=== PATIENT | female | born 1950 | race Caucasian/White ===

== ENCOUNTER 2019-12-31 23:46 | Inpatient (IN) | payer MEDICARE, OTHER ==
[~2019-12-31] VITALS: Ht 170.2 cm; Wt 59.0 kg
--- NOTE | 2019-12-31 22:00 | NUR ---
received report from Casey Adair RN
--- NOTE | 2020-01-01 05:52 | NUR ---
Paged Hospitalist to inform her that patient has arrived from [facility] and will need to be seen and orders are needed.
[2020-01-01 06:09] VITALS: BP 140/80
--- NOTE | 2020-01-01 06:12 | NUR ---
keke Sarmiento RN report
--- NOTE | 2020-01-01 06:21 | NUR ---
gave report to ROSALIA Del Rosario
--- NOTE | 2020-01-01 06:39 | NUR ---
Patient in room ORTHO 4006. I have received report from Silvia LINDSEY and had the opportunity to ask questions and assume patient care.
[2020-01-01] MEDS ORDERED: potassium CL 10mEq/100ml bag 100 ML IV PRN ×2 (06:45)
[2020-01-01] MEDS ORDERED: ondansetron/PF 4mg/2ml inj IV PRN (06:45)
[2020-01-01] MEDS ORDERED: HYDROcodone/acetaminophen 10/325mg tab PO PRN (06:45)
[2020-01-01] MEDS ORDERED: morphine 2 MG/ML inj. syringe IV PRN ×2 (06:45)
[2020-01-01] MEDS ORDERED: acetaminophen 325mg tablet PO PRN (06:45)
[2020-01-01] MEDS ORDERED: magnesium 2GM in 50ml NS 50 ML IV PRN (06:45)
[2020-01-01] MEDS ORDERED: potassium Cl 20 mEq SR tablet PO PRN (06:45)
[2020-01-01] MEDS ORDERED: magnesium Cl slow-release 64mg tablet PO PRN (06:45)
[2020-01-01] MEDS ORDERED: HYDROcodone/acetaminophen 5mg/325mg tablet PO PRN (06:45)
[2020-01-01] MEDS ORDERED: magnesium 4gm in 100ml NS 100 ML IV PRN (06:45)
--- NOTE | 2020-01-01 07:45 | NUR ---
Patients daughter, Danielle Toth, called and was updated on the patients plan of care. Will continue to closely monitor.
[2020-01-01] MEDS: K and/or MAG REPLACEMENT MC SCH ×2 (08:00→19:48)
[2020-01-01] MEDS ORDERED: guaiFENesin/DM/phenylephrine syrup 120ml bottle PO SCH (08:00)
[2020-01-01] MEDS: heparin, porcine 5000 units/ml vial SQ SCH ×2 (08:08→19:54)
[2020-01-01] MEDS: CefTRIAXone 2gm/D5W 50ml 50 ML IV SCH (08:09)
[2020-01-01] MEDS: docusate sod 100mg capsule PO SCH ×2 (08:09→19:54)
[2020-01-01] MEDS: normal saline 1000ml 1,000 ML IV SCH ×2 (08:09→23:38)
[2020-01-01] MEDS ORDERED: LOSA25TA96 PO (08:23)
[2020-01-01] MEDS ORDERED: SYN0.088T PO (08:23)
[2020-01-01] MEDS: azithromycin/NS 500mg/250ml 250 ML IV SCH (08:41)
[2020-01-01] MEDS ORDERED: pneumococcal 23-VAL P-sac vacc 25 mcg/0.5ml vial IMVAC ONE (09:15)
[2020-01-01] MEDS ORDERED: FLU VACC QS2019-20 36MOS UP/PF 60 MCG/0.5 ML SYRINGE IMVAC ONE (09:20)
[2020-01-01] MEDS: guaiFENesin/DM 10ml UD oral syrup PO SCH ×3 (10:09→19:54)
[2020-01-01 10:15] VITALS: BP 145/78
[2020-01-01 10:16] LABS: BASOPHILS % (AUTO) 0.2 % (0-1); EOSINOPHILS # (AUTO) 0.1 X10'3 (0-0.9); EOSINOPHILS % (AUTO) 0.5 % (0-6); HEMATOCRIT 33.9 % (35.0-45.0); LYMPHOCYTES # (AUTO) 1.3 X10'3 (1.1-4.8); LYMPHOCYTES % (AUTO) 8.8 % (21-51); MEAN CORPUSCULAR HEMOGLOBIN 29.2 PG (27.0-31.0); MEAN CORPUSCULAR HGB CONC 32.3 g/dL (33.0-36.5); MEAN CORPUSCULAR VOLUME 90.3 FL (78-98); MEAN PLATELET VOLUME 7.8 FL (7.4-10.4); MONOCYTES # (AUTO) 0.2 X10'3 (0-0.9); MONOCYTES % (AUTO) 1.3 % (2-12); NEUTROPHILS # (AUTO) 12.8 X10'3 (1.8-7.7); NEUTROPHILS % (AUTO) 89.2 % (42-75); PLATELET COUNT 219 X10'3 (140-440); RED BLOOD COUNT 3.76 X10'6 (4.20-5.60); RED CELL DISTRIBUTION WIDTH 14.1 % (11.5-14.5); WHITE BLOOD COUNT 14.3 X10'3 (4.5-11.0)
[2020-01-01 10:20] LABS: ALANINE AMINOTRANSFERASE 14 U/L (12-78); ALBUMIN 2.3 G/DL (3.4-5.0); ALBUMIN/GLOBULIN RATIO 0.5 (1.1-1.5); ALKALINE PHOSPHATASE 72 IU/L (46-116); ANION GAP 10 (8-16); ASPARTATE AMINO TRANSFERASE 18 U/L (10-37); BILIRUBIN,TOTAL 0.4 MG/DL (0.1-1.0); BLOOD UREA NITROGEN 31 MG/DL (7-18); CALCIUM 8.7 MG/DL (8.5-10.1); CHLORIDE 104 MMOL/L (99-107); CREATININE 1.29 MG/DL (0.40-0.90); GLUCOSE 81 MG/DL (70-104); POTASSIUM 3.9 MMOL/L (3.5-5.1); SODIUM 136 MMOL/L (135-145); TOTAL CARBON DIOXIDE 22.5 MMOL/L (24-32); TOTAL PROTEIN 6.7 G/DL (6.4-8.2); eGFR 41 ML/MIN
[2020-01-01 10:42] LABS: TOTAL CELLS COUNTED 100
[2020-01-01 10:45] LABS: PLATELET ESTIMATE NORMAL; TOXIC GRANULATION 2+; TOXIC VACUOLATION 1+
--- NOTE | 2020-01-01 12:09 | NUR ---
Malnutrition consult: Pt admit w/ sepsis, hypoxia, RUL PNA, CHRISTIANO, HTN, hypothyroidism, and SOB pending final COVID-19 results per MD. Pt has normal strength, no edema/wounds, current 58.9kg pt stated wt w/ no prior wt hx, and PO 50% avg first meal this admit. Further PO hx pending this admit. At this time pt does not meet minimum malnutrition criteria. Will monitor for additional protein needs pending further PO documentation given hx. Rec: 1. continue heart healthy diet 2. monitor for additional protein needs 3. bowel care as needed 4. wt per rx Addendum: 01/01/20 at [address] Amended: Links added.
[2020-01-01] MEDS: acetaminophen 325mg tablet PO PRN (12:39)
[2020-01-01] MEDS ORDERED: LEVO125T PO (14:14)
--- NOTE | 2020-01-01 16:16 | NUR ---
Paged Dr Alexander re coronavirus test results PAGER ID: [phone] MESSAGE: Nadiya LINDSEY [phone] D Yuan, test came back negative for coronavirus, thanks!
[2020-01-01 18:00] VITALS: BP 162/87
--- NOTE | 2020-01-01 18:14 | NUR ---
Problems reprioritized. Patient report given, questions answered & plan of care reviewed with Kyung LINDSEY.
--- NOTE | 2020-01-01 18:40 | NUR ---
Patient in room ORTHO 4021. I have received report from alina Hearn and had the opportunity to ask questions and assume patient care.
[2020-01-01] MEDS: lactobacillus rhamnosus 10,000 MMU CELLS/CAPSULE PO SCH (19:54)
[2020-01-01 22:00] VITALS: BP 163/90
[2020-01-01] MEDS ORDERED: codeine/proMETHazine 5ml UD syrup PO ONE (23:25)
[2020-01-01] MEDS: benzonatate 100mg capsule PO PRN (23:35)
--- NOTE | 2020-01-01 23:54 | NUR ---
CODEINE/PROMETHZINE SYROP IS NOT AVAILABLE PER PHARMACY. WILL GIVE TESSLN PEARLS FOR COUGH.
[2020-01-02] MEDS: guaiFENesin/DM 10ml UD oral syrup PO SCH ×4 (01:26→19:44)
[2020-01-02 05:56] LABS: BASOPHILS % (AUTO) 0 % (0-1); EOSINOPHILS % (AUTO) 0.2 % (0-6); HEMATOCRIT 29.8 % (35.0-45.0); LYMPHOCYTES # (AUTO) 1.3 X10'3 (1.1-4.8); LYMPHOCYTES % (AUTO) 12.1 % (21-51); MEAN CORPUSCULAR HGB CONC 33.5 g/dL (33.0-36.5); MEAN CORPUSCULAR VOLUME 89.7 FL (78-98); MEAN PLATELET VOLUME 7.5 FL (7.4-10.4); MONOCYTES # (AUTO) 0.5 X10'3 (0-0.9); MONOCYTES % (AUTO) 4.5 % (2-12); NEUTROPHILS # (AUTO) 8.6 X10'3 (1.8-7.7); NEUTROPHILS % (AUTO) 83.2 % (42-75); PLATELET COUNT 170 X10'3 (140-440); RED BLOOD COUNT 3.32 X10'6 (4.20-5.60); RED CELL DISTRIBUTION WIDTH 14.3 % (11.5-14.5); WHITE BLOOD COUNT 10.4 X10'3 (4.5-11.0)
[2020-01-02 06:18] LABS: ALBUMIN 1.7 G/DL (3.4-5.0); ANION GAP 8 (8-16); BLOOD UREA NITROGEN 16 MG/DL (7-18); BUN/CREATININE RATIO 15.4 (6.6-38.0); CALCIUM 8.5 MG/DL (8.5-10.1); CHLORIDE 108 MMOL/L (99-107); CREATININE 1.04 MG/DL (0.40-0.90); GLUCOSE 86 MG/DL (70-104); POTASSIUM 3.4 MMOL/L (3.5-5.1); SODIUM 140 MMOL/L (135-145); TOTAL CARBON DIOXIDE 24.1 MMOL/L (24-32); eGFR 53 ML/MIN
--- NOTE | 2020-01-02 06:34 | NUR ---
Problems reprioritized. Patient report given, questions answered & plan of care reviewed with ROSALIA MOURA AND ROSALIA TINSLEY.
--- NOTE | 2020-01-02 06:45 | NUR ---
Patient in room ORTHO 4021. I have received report from Rebecca LINDSEY and had the opportunity to ask questions and assume patient care.
[2020-01-02 07:00] VITALS: BP 120/62
[2020-01-02] MEDS: K and/or MAG REPLACEMENT MC SCH ×2 (08:00→20:00)
[2020-01-02] MEDS: docusate sod 100mg capsule PO SCH ×2 (08:00→19:51)
[2020-01-02] MEDS: lactobacillus rhamnosus 10,000 MMU CELLS/CAPSULE PO SCH ×2 (08:03→19:44)
[2020-01-02] MEDS: heparin, porcine 5000 units/ml vial SQ SCH ×2 (08:06→19:44)
[2020-01-02] MEDS: azithromycin/NS 500mg/250ml 250 ML IV SCH (08:07)
[2020-01-02] MEDS: CefTRIAXone 2gm/D5W 50ml 50 ML IV SCH (08:08)
[2020-01-02] MEDS: metoprolol succinate 25mg (24-HOUR) SR. Tablet PO SCH ×2 (09:25→12:33)
[2020-01-02] MEDS ORDERED: cloNIDine 0.1 mg tablet PO PRN (09:25)
[2020-01-02 10:00] VITALS: BP 162/63
[2020-01-02] MEDS: potassium Cl 20 mEq SR tablet PO PRN ×2 (10:20→19:45)
[2020-01-02] MEDS: levoTHYROXINE 125mcg tablet PO SCH (10:20)
[2020-01-02] MEDS: losartan 50mg tablet PO SCH (10:21)
--- NOTE | 2020-01-02 10:27 | NUR ---
Patient refused Toprol states this is not a normal home med & has not "been told by a doctor" she needs to take it.
[2020-01-02] MEDS: benzonatate 100mg capsule PO PRN ×2 (12:32→19:58)
[2020-01-02] MEDS ORDERED: guaiFENesin/DM 10ml UD oral syrup PO PRN (13:30)
[2020-01-02] MEDS ORDERED: benzonatate 100mg capsule PO PRN (13:30)
[2020-01-02] MEDS: normal saline 1000ml 1,000 ML IV SCH (14:23)
--- NOTE | 2020-01-02 15:36 | NUR ---
Schuyler Sánchez in career services officer she will meet with pt tomorrow ( Addendum: 01/02/20 at 1541 by Mariya Paredes RN on January 02
--- NOTE | 2020-01-02 15:42 | NUR ---
Patient wants granddaughter Danielle Toth to be named on advanced directive
--- NOTE | 2020-01-02 17:44 | NUR ---
Received a message from Luis Alberto @ [facility] ([phone]) that patient Yvette Pinon (in room 4021) cultures drawn on 12/30 show "budding yeast in the blood culture" Also temp going up. temp just taken= 99.9 Briseida LINDSEY [id number]
--- NOTE | 2020-01-02 17:45 | NUR ---
Received faxed blood culture results from [facility], filed in chart
[2020-01-02 18:00] VITALS: BP 137/55
--- NOTE | 2020-01-02 18:12 | NUR ---
Problems reprioritized. Patient report given, questions answered & plan of care reviewed with
--- NOTE | 2020-01-02 18:37 | NUR ---
Problems reprioritized. Patient report given, questions answered & plan of care reviewed with Rebecca LINDSEY.
[2020-01-02] MEDS: fluconazole-Diflucan 200mg/NS 100 ML IV SCH (19:43)
[2020-01-02 22:00] VITALS: BP 155/77
[2020-01-03] MEDS: guaiFENesin/DM 10ml UD oral syrup PO SCH ×4 (01:28→19:14)
[2020-01-03] MEDS: potassium Cl 20 mEq SR tablet PO PRN (01:28)
[2020-01-03] MEDS: normal saline 1000ml 1,000 ML IV SCH ×3 (01:35→23:04)
[2020-01-03] MEDS: benzonatate 100mg capsule PO PRN ×3 (03:25→23:32)
[2020-01-03 06:00] VITALS: BP 135/61
[2020-01-03 06:14] LABS: BASOPHILS % (AUTO) 0.1 % (0-1); EOSINOPHILS % (AUTO) 0.2 % (0-6); HEMATOCRIT 29.2 % (35.0-45.0); HEMOGLOBIN 9.6 g/dl (12.0-16.0); LYMPHOCYTES # (AUTO) 1.3 X10'3 (1.1-4.8); MEAN CORPUSCULAR HEMOGLOBIN 29.6 PG (27.0-31.0); MEAN CORPUSCULAR HGB CONC 33.1 g/dL (33.0-36.5); MEAN CORPUSCULAR VOLUME 89.6 FL (78-98); MEAN PLATELET VOLUME 7.5 FL (7.4-10.4); MONOCYTES # (AUTO) 0.8 X10'3 (0-0.9); NEUTROPHILS # (AUTO) 7.2 X10'3 (1.8-7.7); NEUTROPHILS % (AUTO) 76.7 % (42-75); PLATELET COUNT 195 X10'3 (140-440); RED BLOOD COUNT 3.26 X10'6 (4.20-5.60); RED CELL DISTRIBUTION WIDTH 14.4 % (11.5-14.5); WHITE BLOOD COUNT 9.4 X10'3 (4.5-11.0)
--- NOTE | 2020-01-03 06:39 | NUR ---
Problems reprioritized. Patient report given, questions answered & plan of care reviewed with ROSALIA CHILDS.
[2020-01-03 06:42] LABS: ALBUMIN 1.7 G/DL (3.4-5.0); ANION GAP 6 (8-16); BLOOD UREA NITROGEN 10 MG/DL (7-18); BUN/CREATININE RATIO 10.5 (6.6-38.0); CALCIUM 8.4 MG/DL (8.5-10.1); CHLORIDE 107 MMOL/L (99-107); CREATININE 0.95 MG/DL (0.40-0.90); FERRITIN 318 NG/ML (8-252); GLUCOSE 84 MG/DL (70-104); MAGNESIUM 1.7 MG/DL (1.5-2.4); POTASSIUM 3.6 MMOL/L (3.5-5.1); SODIUM 139 MMOL/L (135-145); TOTAL CARBON DIOXIDE 26.4 MMOL/L (24-32); eGFR 58 ML/MIN
[2020-01-03 07:03] LABS: % IRON SATURATION 10 % (11-46); IRON 14 UG/DL (49-151); TOTAL IRON BINDING CAPACITY 144 UG/DL (259-388)
[2020-01-03] MEDS: K and/or MAG REPLACEMENT MC SCH ×2 (08:00→20:00)
[2020-01-03] MEDS: docusate sod 100mg capsule PO SCH ×2 (08:28→19:22)
[2020-01-03] MEDS: CefTRIAXone 2gm/D5W 50ml 50 ML IV SCH (08:28)
[2020-01-03] MEDS: losartan 50mg tablet PO SCH (08:29)
[2020-01-03] MEDS: lactobacillus rhamnosus 10,000 MMU CELLS/CAPSULE PO SCH ×2 (08:29→19:14)
[2020-01-03] MEDS: metoprolol succinate 25mg (24-HOUR) SR. Tablet PO SCH ×2 (08:30→08:34)
[2020-01-03] MEDS: levoTHYROXINE 125mcg tablet PO SCH (08:30)
[2020-01-03] MEDS: azithromycin 250mg tablet PO SCH (08:31)
[2020-01-03] MEDS: heparin, porcine 5000 units/ml vial SQ SCH ×2 (08:31→19:14)
[2020-01-03] MEDS: fluconazole-Diflucan 200mg/NS 100 ML IV SCH (09:31)
[2020-01-03 10:00] VITALS: BP 134/76
[2020-01-03 13:04] LABS: OCCULT BLOOD STOOL NEGATIVE (Neg)
[2020-01-03 18:00] VITALS: BP 152/101
[2020-01-03 22:00] VITALS: BP 167/99
[2020-01-04] MEDS: guaiFENesin/DM 10ml UD oral syrup PO SCH ×4 (01:16→19:41)
--- NOTE | 2020-01-04 04:58 | NUR ---
Problems reprioritized. Patient report given, questions answered & plan of care reviewed with ROSALIA CHILDS.
[2020-01-04 06:00] VITALS: BP 133/67
--- NOTE | 2020-01-04 06:20 | NUR ---
Patient in room ORTHO 4021. I have received report from Vita and had the opportunity to ask questions and assume patient care.
--- NOTE | 2020-01-04 06:21 | NUR ---
Patient report given, questions answered and plan of care reviewed with ROSALIA Avelar.
[2020-01-04 06:42] LABS: BASOPHILS % (AUTO) 0.2 % (0-1); EOSINOPHILS % (AUTO) 0.5 % (0-6); HEMATOCRIT 30.1 % (35.0-45.0); LYMPHOCYTES # (AUTO) 1.3 X10'3 (1.1-4.8); LYMPHOCYTES % (AUTO) 16.3 % (21-51); MEAN CORPUSCULAR HEMOGLOBIN 29.9 PG (27.0-31.0); MEAN CORPUSCULAR HGB CONC 33.1 g/dL (33.0-36.5); MEAN CORPUSCULAR VOLUME 90.3 FL (78-98); MEAN PLATELET VOLUME 7.4 FL (7.4-10.4); MONOCYTES # (AUTO) 0.7 X10'3 (0-0.9); MONOCYTES % (AUTO) 9.2 % (2-12); NEUTROPHILS % (AUTO) 73.8 % (42-75); PLATELET COUNT 253 X10'3 (140-440); RED BLOOD COUNT 3.33 X10'6 (4.20-5.60); RED CELL DISTRIBUTION WIDTH 14.3 % (11.5-14.5); WHITE BLOOD COUNT 8.1 X10'3 (4.5-11.0)
[2020-01-04 06:56] LABS: ALBUMIN 1.6 G/DL (3.4-5.0); ANION GAP 6 (8-16); BLOOD UREA NITROGEN 7 MG/DL (7-18); BUN/CREATININE RATIO 7.9 (6.6-38.0); CALCIUM 8.4 MG/DL (8.5-10.1); CHLORIDE 108 MMOL/L (99-107); CREATININE 0.89 MG/DL (0.40-0.90); GLUCOSE 83 MG/DL (70-104); MAGNESIUM 1.8 MG/DL (1.5-2.4); POTASSIUM 3.8 MMOL/L (3.5-5.1); SODIUM 142 MMOL/L (135-145); TOTAL CARBON DIOXIDE 27.9 MMOL/L (24-32); eGFR 63 ML/MIN
[2020-01-04] MEDS: CefTRIAXone 2gm/D5W 50ml 50 ML IV SCH (07:24)
[2020-01-04] MEDS: K and/or MAG REPLACEMENT MC SCH ×2 (07:28→20:00)
[2020-01-04] MEDS: azithromycin 250mg tablet PO SCH (07:32)
[2020-01-04] MEDS: levoTHYROXINE 125mcg tablet PO SCH (07:32)
[2020-01-04] MEDS: docusate sod 100mg capsule PO SCH ×2 (07:32→20:00)
[2020-01-04] MEDS: lactobacillus rhamnosus 10,000 MMU CELLS/CAPSULE PO SCH ×2 (07:32→19:41)
[2020-01-04] MEDS: losartan 50mg tablet PO SCH (07:33)
[2020-01-04] MEDS: heparin, porcine 5000 units/ml vial SQ SCH ×2 (07:33→19:41)
[2020-01-04] MEDS: acetaminophen 325mg tablet PO PRN (07:44)
[2020-01-04] MEDS: benzonatate 100mg capsule PO PRN (07:45)
[2020-01-04] MEDS: fluconazole-Diflucan 200mg/NS 100 ML IV SCH (08:44)
[2020-01-04] MEDS ORDERED: fluconazole 100mg tablet PO ONE (09:05)
--- NOTE | 2020-01-04 09:45 | NUR ---
Reassessment: Patient admitted with sepsis, fever, right upper lobe pneumonia, hypoxemia, CHRISTIANO, HTN, hypothyroidism, and anemia per MD note. Increased protein needs d/t infection, her appetite appears to be good with average PO intake of 50-75% of heart healthy diet, she is meeting her needs at this time. Will continue to follow. Recommend: 1. continue heart healthy diet 2. monitor for additional protein needs if suboptimal PO intake 3. bowel care as needed 4. wt per rx Addendum: 01/04/20 at [address] Amended: Links added.
[2020-01-04 10:00] VITALS: BP 127/75
[2020-01-04] MEDS ORDERED: pneumococcal 23-VAL P-sac vacc 25 mcg/0.5ml vial IMVAC ONE (10:00)
[2020-01-04] MEDS ORDERED: FLU VACC QS2019-20 36MOS UP/PF 60 MCG/0.5 ML SYRINGE IMVAC ONE (10:00)
[2020-01-04] MEDS ORDERED: diphenhydrAMINE 25mg capsule PO PRN (10:50)
[2020-01-04] MEDS: normal saline 1000ml 1,000 ML IV SCH (14:18)
--- NOTE | 2020-01-04 15:39 | NUR ---
PAGER ID: [phone] MESSAGE: Jimmie, for Ms. Yuan in [id number], Dr Ferro's note indicates pt wishes to be DNR/DNI, just FYI, current code status shows "full" Thank you Rosio [phone]
[2020-01-04 18:00] VITALS: BP 148/90
--- NOTE | 2020-01-04 18:17 | NUR ---
Problems reprioritized. Patient report given, questions answered & plan of care reviewed with Isabella.
--- NOTE | 2020-01-04 19:15 | NUR ---
RECEIVED REPORT FROM LESLY LINDSEY AND ASSUMED PATIENT CARE
--- NOTE | 2020-01-04 22:21 | NUR ---
REPORT GIVEN TO FUNMI LINDSEY
[2020-01-05] MEDS: guaiFENesin/DM 10ml UD oral syrup PO SCH ×3 (01:49→14:10)
[2020-01-05] MEDS: normal saline 1000ml 1,000 ML IV SCH (03:17)
[2020-01-05] MEDS: benzonatate 100mg capsule PO PRN ×2 (05:11→10:55)
--- NOTE | 2020-01-05 05:11 | NUR ---
I have reviewed and agree with all interventions, assessments performed and documented by Isabella LINDSEY.
[2020-01-05] MEDS: acetaminophen 325mg tablet PO PRN (05:12)
[2020-01-05 05:52] LABS: BASOPHILS % (AUTO) 0.4 % (0-1); EOSINOPHILS # (AUTO) 0.1 X10'3 (0-0.9); EOSINOPHILS % (AUTO) 1.2 % (0-6); HEMATOCRIT 27.5 % (35.0-45.0); HEMOGLOBIN 9.2 g/dl (12.0-16.0); LYMPHOCYTES # (AUTO) 1.5 X10'3 (1.1-4.8); LYMPHOCYTES % (AUTO) 17.5 % (21-51); MEAN CORPUSCULAR HEMOGLOBIN 29.8 PG (27.0-31.0); MEAN CORPUSCULAR HGB CONC 33.6 g/dL (33.0-36.5); MEAN CORPUSCULAR VOLUME 88.6 FL (78-98); MEAN PLATELET VOLUME 7.1 FL (7.4-10.4); MONOCYTES # (AUTO) 0.7 X10'3 (0-0.9); NEUTROPHILS # (AUTO) 6.2 X10'3 (1.8-7.7); NEUTROPHILS % (AUTO) 72.9 % (42-75); PLATELET COUNT 338 X10'3 (140-440); RED CELL DISTRIBUTION WIDTH 13.9 % (11.5-14.5); WHITE BLOOD COUNT 8.5 X10'3 (4.5-11.0)
[2020-01-05 05:54] LABS: ALBUMIN 1.6 G/DL (3.4-5.0); ANION GAP 6 (8-16); BLOOD UREA NITROGEN 7 MG/DL (7-18); BUN/CREATININE RATIO 9.2 (6.6-38.0); CALCIUM 8.1 MG/DL (8.5-10.1); CHLORIDE 109 MMOL/L (99-107); CREATININE 0.76 MG/DL (0.40-0.90); GLUCOSE 81 MG/DL (70-104); MAGNESIUM 1.6 MG/DL (1.5-2.4); POTASSIUM 3.3 MMOL/L (3.5-5.1); SODIUM 143 MMOL/L (135-145); TOTAL CARBON DIOXIDE 28.3 MMOL/L (24-32); eGFR 75 ML/MIN
[2020-01-05 06:00] VITALS: BP 148/78
--- NOTE | 2020-01-05 06:39 | NUR ---
Problems reprioritized. Patient report given, questions answered & plan of care reviewed with Humera LINDSEY.
[2020-01-05] MEDS: lactobacillus rhamnosus 10,000 MMU CELLS/CAPSULE PO SCH (07:48)
[2020-01-05] MEDS: losartan 50mg tablet PO SCH (07:49)
[2020-01-05] MEDS: metoprolol succinate 25mg (24-HOUR) SR. Tablet PO SCH (07:49)
[2020-01-05] MEDS: docusate sod 100mg capsule PO SCH (07:49)
[2020-01-05] MEDS: levoTHYROXINE 125mcg tablet PO SCH (07:49)
[2020-01-05] MEDS: heparin, porcine 5000 units/ml vial SQ SCH (07:50)
[2020-01-05] MEDS: K and/or MAG REPLACEMENT MC SCH (08:00)
[2020-01-05] MEDS: CefTRIAXone 2gm/D5W 50ml 50 ML IV SCH (08:00)
[2020-01-05] MEDS ORDERED: fluconazole 100mg tablet PO SCH (08:00)
[2020-01-05 08:17] LABS: PLATELET ESTIMATE NORMAL; TOTAL CELLS COUNTED 100
[2020-01-05 10:00] VITALS: BP 156/73
[2020-01-05] MEDS ORDERED: FLU VACC QS2019-20 36MOS UP/PF 60 MCG/0.5 ML SYRINGE IMVAC ONE (10:00)
[2020-01-05] MEDS ORDERED: pneumococcal 23-VAL P-sac vacc 25 mcg/0.5ml vial IMVAC ONE (10:00)
[2020-01-05] MEDS ORDERED: potassium Cl 20 mEq SR tablet PO STA (11:05)
[2020-01-05] MEDS ORDERED: CEFD300C3 PO (11:34)
--- NOTE | 2020-01-05 16:07 | NUR ---
Patient stable for discharge. PIV removed, cannula intact. Belongings gathered and sent home with patient.
--- NOTE | 2020-01-06 15:23 | NUR ---
case management DC follow up: LM/VM post DC status, questions or concerns
[2020-01-06] MEDS ORDERED: FLUC100T PO (17:28)
== END 2020-01-05 15:55 | disposition home or self-care (01) | DRG 871 ==
LOC: ORTHO 4S 01-01 05:43
PROVIDERS: ADMIT Internal Medicine; ATTEND Internal Medicine Infectious Disease
PROC: 3E0234Z Introduction of Serum, Toxoid and Vaccine into Muscle, Percutaneous Approach (ICD-10-PCS; principal; 2020-01-01)
PROC: 3E02340 Introduction of Influenza Vaccine into Muscle, Percutaneous Approach (ICD-10-PCS; 2020-01-01)
DX: A41.9 Sepsis, unspecified organism (principal); J18.9 Pneumonia, unspecified organism; J96.01 Acute respiratory failure with hypoxia; N17.0 Acute kidney failure with tubular necrosis; D63.8 Anemia in other chronic diseases classified elsewhere; E03.9 Hypothyroidism, unspecified; E86.0 Dehydration; I10 Essential (primary) hypertension; Z66 Do not resuscitate; Z79.899 Other long term (current) drug therapy; Z23 Encounter for immunization; Z03.818 Encounter for observation for suspected exposure to other biological agents ruled out
CPT/HCPCS: 36415; 71045; 80048; 80053; 82272; 82607; 82728; 83540; 83550; 83605; 83735; 84443; 85025; 87040; 87081; 87502; 87503; 87635; 99285; G0378; J0456; J0696; J1450; J1644; J7030; Q0163; Q2037